=== PATIENT | female | born 1970 | race Caucasian/White ===

== ENCOUNTER 2016-11-20 08:05 | Emergency (ER) | payer MEDICAID ==
[~2016-11-20] VITALS: Ht 172.7 cm; Wt 168.0 kg
[2016-11-20] MEDS ORDERED: ASPI-496 PO (08:26)
[2016-11-20] MEDS ORDERED: LISI-170 PO (08:26)
[2016-11-20] MEDS ORDERED: METO25TA35 PO (08:26)
[2016-11-20] MEDS ORDERED: APIX5TAB PO (08:26)
[2016-11-20 08:49] LABS: BLOOD UREA NITROGEN 10 mg/dL (7-18)
[2016-11-20 08:52] LABS: ASPARTATE AMINO TRANSFERASE 19 U/L (15-37)
[2016-11-20 09:13] LABS: PATH.CAST-FLAG NOT PRESENT; SPERM-FLAG NOT PRESENT; SRC-FLAG NOT PRESENT; XTAL-FLAG NOT PRESENT; YLC-FLAG NOT PRESENT
[2016-11-20 11:03] VITALS: BP 184/113
== END 2016-11-20 11:02 | disposition home or self-care (01) ==
LOC: ED 09:11
DX: R10.84 Generalized abdominal pain (principal); I50.9 Heart failure, unspecified; I48.91 Unspecified atrial fibrillation; E03.9 Hypothyroidism, unspecified; I11.0 Hypertensive heart disease with heart failure
CPT/HCPCS: 36415; 76700; 80053; 81001; 83690; 85025; 93005; 99285

== ENCOUNTER 2016-11-24 03:59 | Emergency (ER) | payer MEDICAID ==
[~2016-11-24] VITALS: Ht 170.2 cm; Wt 160.0 kg
[2016-11-24 03:59] VITALS: BP 162/92
[~2016-11-24 03:59] MED LIST: APIX5TAB PO; ASPI-496 PO; LISI-170 PO; METO25TA35 PO
[2016-11-24] MEDS ORDERED: CYCLOBENZAPRINE 10 MG TABLET PO ONE (05:30)
[2016-11-24] MEDS ORDERED: KETOROLAC 30 MG/1 ML IM ONE (05:30)
[2016-11-24] MEDS ORDERED: KETOROLAC 30 MG/1 ML ONE (05:35)
[2016-11-24] MEDS ORDERED: CYCLOBENZAPRINE 10 MG TABLET ONE (05:35)
== END 2016-11-24 05:45 | disposition home or self-care (01) ==
LOC: ED 04:06
DX: G89.29 Other chronic pain (principal); M54.5 Low back pain; I10 Essential (primary) hypertension; E03.9 Hypothyroidism, unspecified; I48.91 Unspecified atrial fibrillation
CPT/HCPCS: 96372; 99283; J1885